=== PATIENT | male | born 1965 | race Caucasian/White ===

== ENCOUNTER 2020-07-09 05:50 | Emergency (ER) | payer OTHER, MEDICAID ==
--- NOTE | 2020-07-09 06:12 | EDM.PDOC ---
ED HPI GENERAL MEDICAL PROBLEM - General Chief Complaint: Back Pain or Injury Stated Complaint: Low thoracic back pain Time Seen by Provider: 07/09/20 06:05 Source of Information: Reports: Patient History Limitations: Reports: No Limitations - History of Present Illness INITIAL COMMENTS - FREE TEXT/NARRATIVE: Patient presents emergency department today with complaints of severe pain in the mid lateral aspect of his back starting about 1:00 this morning. The patient went to bed had a little discomfort in the mid lateral aspect of the right side of his thoracic back but he woke up with this severe spasms and shooting of pain about 1:00 this morning. The pain is really kind of the posterior axillary line in the mid thoracic region. He is able to get comfortable but he is having quite a bit of pain and spasms when he moves but he is able to get in a position of comfort. 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 He has been doing quite a bit of lifting bending and flexing yesterday when he was at work during the day he cannot isolate any specific situation where he felt the sudden development of pain. He felt a little sore but this really came out of the blue and woke him up from sleep. He has no paresthesias of his upper or lower extremities. No change in the functionality of his upper or lower extremities. No loss of bowel or bladder. No recent falls trauma or injury. No chest pain no shortness of breath or difficulty breathing. No abdominal pain nausea or vomiting. He tried some ibuprofen and Flexeril without much improvement. No Covid symptoms no Covid exposure. Back/right lower thoracic Pain Score (Numeric/FACES): 8 - Related Data Allergies Allergy/AdvReac Type Severity Reaction Status Date / Time amphetamine Allergy Other Verified 07/12/19 16:13 Penicillins Allergy Other Verified 07/12/19 16:13 Home Meds: Home Meds Acetaminophen [Tylenol Extra Strength] 500 - 1,000 mg pe PO Q4H PRN 07/12/19 [History] Celecoxib 200 mg PO DAILY 07/12/19 [History] Cyclobenzaprine [Flexeril] 10 mg pe PO TID PRN 07/12/19 [History] Naproxen Sodium 220 mg PO BID PRN 07/12/19 [History] tiZANidine HCl [Zanaflex] 2 mg PO QID PRN #12 capsule 07/09/20 [Rx] Past Medical History Musculoskeletal History: Reports: Other (See Below) Other Musculoskeletal History: ulnar neuropathy at elbow of right upper extremity, chronic knee pain, tear of left rotator cuff, impingement syndrome of both shoulders. Psychiatric History: Reports: ADD, Addiction, Depression Other Psychiatric History: tobacco addiction Endocrine/Metabolic History: Reports: Obesity/BMI 30+ ED ROS GENERAL - Review of Systems Review Of Systems: Comprehensive ROS is negative, except as noted in HPI. ED EXAM, UPPER BACK/NECK PAIN - Physical Exam Exam: See Below Text/Narrative:: When I enter the room the patient is sitting comfortably on the bed but when I ask him to move to examine him he appears to develop severe muscle spasms and grabs his right mid lateral thoracic posterior axillary line of the right back. Exam Limited By: No Limitations General Appearance: Alert, WD/WN, Moderate Distress Eye Exam: Bilateral Eye: EOMI Ears Exam: Normal External Exam Nose Exam: Normal Inspection, Normal Mucousa Throat/Mouth Exam: Normal Inspection, Normal Lips, Normal Voice Head Exam: Atraumatic, Normocephalic Neck Exam: Non-Tender, Full Range of Motion, Normal Alignment, Normal Inspection Cardiovascular/Respiratory: Regular Rate, Rhythm GI/Abdominal: Normal Bowel Sounds, Soft, Non-Tender (Male) Exam: Deferred Rectal (Males) Exam: Deferred Back Exam: Muscle Spasm (Right mid lateral thoracic region in the posterior axillary line on the right.). No: Paraspinal Tenderness, Vertebral Tenderness Extremities: Normal Inspection, Normal Range of Motion, Normal Capillary Refill Neurologic: sales clerk II-XII nml As Tested, No Motor/Sensory Deficits, Alert, Normal Mood/Affect, Oriented x 3 DTR: 2+: Patella (R), Patella (L), Achilles (R), Achilles (L) Psychiatric: Normal Affect, Normal Mood Skin Exam: Normal Color, Warm/Dry Course - Vital Signs Last Recorded V/S: Last Vital Signs Temp 98.1 F 07/09/20 05:50 Pulse 70 07/09/20 05:50 Resp 16 07/09/20 05:50 BP 177/104 H 07/09/20 05:50 Pulse Ox 97 07/09/20 05:50 - Orders/Labs/Meds Meds: Medications Discontinued Medications Generic Name Dose Route Start Last Admin Trade Name Dorota PRN Reason Stop Dose Admin Hydrocodone Bitart/Acetaminophen 1 tab 07/09/20 06:48 07/09/20 06:56 [place] 325-10 Mg PO 07/09/20 06:49 1 tab ONETIME ONE Administration Orphenadrine Citrate 60 mg 07/09/20 06:11 07/09/20 06:32 Norflex IM 07/09/20 06:12 60 mg NOW STA Administration - Re-Assessments/Exams Free Text/Narrative Re-Assessment/Exam: Patient initially was given 60 mg of Norflex IM. He had some improvement of his pain. This is clearly musculoskeletal pain. There is no rash lesions falls sores or injuries to this area. It is primarily mechanical does get worse with movement. He is feeling better he like to go home. We will give him hydrocodone to take at home to help with sleep tonight. We will also send a prescription for Zanaflex. If he is not improving we will have him follow-up with physical therapy or his PCP. He is comfortable with this plan his questions are answered. Departure - Departure Time of Disposition: 06:51 Disposition: Home, Self-Care 01 Clinical Impression: Muscle spasm of back - Discharge Information Prescriptions: tiZANidine HCl [Zanaflex] 2 mg PO QID PRN #12 capsule PRN Reason: Muscle Spasm Instructions: Muscle Cramps and Spasms, [id number], Back Injury Prevention, [id number], Pain Medicine Instructions, [id number] Referrals: PCP,Unobtain [Ordering Only Provider] - Forms: ED Department Discharge, ED Return to Work/School Form Additional Instructions: Make sure and drink plenty of fluids over the next few days. Tylenol and or Ibuprofen as needed for pain. Heat or ice to the affected area which every works best for you. If muscle spasms not improved with above. Zanaflex 2 tablet 4 times a day as needed for muscle spasms. Caution sedation. Rx sent to [facility]. If not improving with the above therapy consider a self referral to physical therapy. Return to the ED if new or worsening symptoms. Okay to return to work light duty for the next week. If continued problems see physical therapy for continue directions of activity at work. Follow up with PCP in the next 7 days if not improving sooner if worse.
[2020-07-09 06:18] VITALS: BP 177/104; PULSE 70
[2020-07-09] MEDS: Orphenadrine 60 MG/2 ML Inj IM STA (06:32)
[2020-07-09] MEDS: Acetaminophen/HYDROcodone 325-10 MG Tab PO ONE (06:56)
== END 2020-07-09 07:10 | disposition home or self-care (01) ==
LOC: VM.ED 05:50
DX: M62.830 Muscle spasm of back (principal); E66.9 Obesity, unspecified; Z68.30 Body mass index [BMI] 30.0-30.9, adult; Z88.8 Allergy status to other drugs, medicaments and biological substances; Z88.0 Allergy status to penicillin
CPT/HCPCS: 96372; 99283; A9270-GY; J2360

== ENCOUNTER 2021-05-17 17:16 | Emergency (ER) | payer OTHER, MEDICAID ==
[2021-05-17 17:31] VITALS: BP 161/91; PULSE 74
--- NOTE | 2021-05-17 17:32 | EDM.PDOC ---
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 Sustained a 5 cm laceration to the pad of the 4th finger on the volar side. immunizations to include tetanus are up to date. He is right handed - Related Data Allergies Allergy/AdvReac Type Severity Reaction Status Date / Time amphetamine Allergy Other Verified 05/17/21 17:33 Penicillins Allergy Other Verified 05/17/21 17:33 Home Meds: Home Meds Acetaminophen [Tylenol Extra Strength] 500 - 1,000 mg pe PO Q4H PRN 07/12/19 [History] Cyclobenzaprine [Flexeril] 10 mg pe PO TID PRN 07/12/19 [History] Naproxen Sodium 220 mg PO BID PRN 07/12/19 [History] lisinopriL [Lisinopril] 10 mg PO DAILY 05/17/21 [History] Past Medical History Cardiovascular History: Reports: Hypertension Musculoskeletal History: Reports: Other (See Below) Other Musculoskeletal History: ulnar neuropathy at elbow of right upper extremity, chronic knee pain, tear of left rotator cuff, impingement syndrome of both shoulders. Psychiatric History: Reports: ADD, Addiction, Depression Other Psychiatric History: tobacco addiction Endocrine/Metabolic History: Reports: Obesity/BMI 30+ ED ROS GENERAL - Review of Systems Review Of Systems: See Below Constitutional: Reports: No Symptoms HEENT: Reports: No Symptoms Respiratory: Reports: No Symptoms Cardiovascular: Reports: No Symptoms Endocrine: Reports: No Symptoms GI/Abdominal: Reports: No Symptoms : Reports: No Symptoms Musculoskeletal: Reports: No Symptoms Skin: Reports: Wound ED EXAM, GENERAL - Physical Exam Exam: See Below Exam Limited By: No Limitations General Appearance: Alert, WD/WN, No Apparent Distress Eye Exam: Bilateral Eye: Normal Inspection, PERRL Ears: Normal External Exam Nose: Normal Inspection, Normal Mucosa Throat/Mouth: Normal Inspection, Normal Voice Head: Atraumatic Neck: Normal Inspection Respiratory/Chest: No Respiratory Distress, Lungs Clear Cardiovascular: Normal Peripheral Pulses, Regular Rate, Rhythm Extremities: Other (3.5 cm laceration to the 4th finger volar aspect distal fingers on the left hand. sensation intact distally. no bony or tendon involvement) ED GENERAL MEDICAL PROCEDURES - Laceration/Wound Repair Digit - 4th (Ring) Lac/wound length in cm: 3.5 Appearance: Superficial, Subcutaneous Distal NVT: Neuro & Vascular Intact, No Tendon Injury Anesthetic Type: Digital Local Anesthesia - Lidocaine (Xylocaine): 1% Plain Local Anesthetic Volume: 3cc Skin Prep: Saline Exploration/Debridement/Repair: Wound Explored Closed with: Sutures Suture Size: 4-0 # of Sutures: 7 Suture Type: Nylon, Running (locked) Sterile Dressing Applied: Nurse Tetanus Status Addressed: Yes Complications: No Course - Vital Signs Last Recorded V/S: Last Vital Signs Temp 37.3 C 05/17/21 17:20 Pulse 74 05/17/21 17:20 Resp 18 05/17/21 17:20 BP 161/91 H 05/17/21 17:20 Pulse Ox 98 05/17/21 17:20 - Orders/Labs/Meds Meds: Medications Discontinued Medications Generic Name Dose Route Start Last Admin Trade Name Dorota PRN Reason Stop Dose Admin Lidocaine HCl 5 ml 05/17/21 17:21 Lidocaine 1% 5 Ml Sdv INJECT 05/17/21 17:22 ONETIME ONE - Re-Assessments/Exams Free Text/Narrative Re-Assessment/Exam: 05/17/21 17:44 tetanus is up to date. sutures out in 10-14 days. watch for signs of infection Departure - Departure Time of Disposition: 17:59 Disposition: Home, Self-Care 01 Condition: Good Clinical Impression: Finger laceration - Discharge Information Instructions: Laceration Care, Adult, [id number] Referrals: PCP,None [Primary Care Provider] - Additional Instructions: keep the finger dressed with a bandage. You can wash your hands, but do not immerse them in water as this will spread infection. sutures need to be removed in 10-14 days. return to the ED for signs of infection with redness and swelling. Sepsis Event Note (ED) - Focused Exam Vital Signs: Vital Signs Temp Pulse Resp BP Pulse Ox 05/17/21 17:20 37.3 C 74 18 161/91 H 98
== END 2021-05-17 18:12 | disposition home or self-care (01) ==
LOC: VM.ED 17:16
DX: S61.215A Laceration without foreign body of left ring finger without damage to nail, initial encounter (principal); I10 Essential (primary) hypertension; F17.200 Nicotine dependence, unspecified, uncomplicated; E66.9 Obesity, unspecified; Z88.6 Allergy status to analgesic agent; Z88.0 Allergy status to penicillin; Z79.899 Other long term (current) drug therapy; W26.8XXA Contact with other sharp object(s), not elsewhere classified, initial encounter; Y92.89 Other specified places as the place of occurrence of the external cause; Y99.0 Civilian activity done for income or pay
CPT/HCPCS: 12002; 99282-25

== ENCOUNTER 2024-02-20 15:36 | Emergency (ER) | payer MEDICAID ==
[2024-02-20] MEDS: Aspirin 81 MG Tab.Chew PO ONE (15:43)
[2024-02-20] MEDS ORDERED: Sodium Chloride 0.9% 10 ML Syringe FLUSH PRN (15:44)
[2024-02-20] MEDS: Alum Hydrox/Mag Hydrox/Simeth 30 ML, Lidocaine 2% 15 ML PO ONE (15:50)
[2024-02-20] MEDS: Nitroglycerin 0.4 MG Tab.SL SL ONE (15:57)
[2024-02-20 16:01] LABS: BASOPHILS ABSOLUTE AUTO 0.1 x10^3/uL (0.0-0.2); BASOPHILS PERCENT AUTO 0.6 % (0.2-1.2); EOSINOPHILS ABSOLUTE AUTO 0.2 x10^3/uL (0.0-0.5); EOSINOPHILS PERCENT AUTO 1.9 % (0.0-4.0); HEMATOCRIT 46.5 % (40.0-52.0); HEMOGLOBIN 16.2 g/dL (14.0-18.0); IMMATURE GRAN ABSOLUTE AUTO 0.04 x10^3/uL (0.00-0.07); LYMPHOCYTES ABSOLUTE AUTO 1.7 x10^3/uL (1.0-4.8); LYMPHOCYTES PERCENT AUTO 15.7 % (25.0-50.0); MEAN CORPUSCULAR HEMOGLOBIN 30.1 pg (26.0-32.0); MEAN CORPUSCULAR HGB CONC 34.8 g/dL (32.0-36.0); MEAN CORPUSCULAR VOLUME 86.4 fL (78.0-93.0); MONOCYTES ABSOLUTE AUTO 0.8 x10^3/uL (0.0-0.8); MONOCYTES PERCENT AUTO 7.8 % (2.0-11.0); NEUTROPHILS ABSOLUTE AUTO 7.9 x10^3/uL (1.8-7.7); NEUTROPHILS PERCENT AUTO 73.6 % (50.0-80.0); PLATELET COUNT,PLT 192 x10^3/uL (130-400); RED BLOOD CELL COUNT 5.38 x10^6/uL (4.5-6.0); WHITE BLOOD CELL COUNT,WBC 10.7 x10^3/uL (4.0-10.0)
[2024-02-20 16:12] LABS: INR 1.1 (0.9-1.1); PROTHROMBIN TIME 10.7 SEC (8.9-11.5)
[2024-02-20 16:25] LABS: A/G RATIO 0.95; ALANINE AMINOTRANSFERASE,ALT 26 U/L (16-63); ALBUMIN 3.7 g/dL (3.4-5.0); ALKALINE PHOSPHATASE 104 U/L (46-116); ASPARTATE AMNIOTRANSFERASE,AST 127 U/L (15-37); BILIRUBIN TOTAL 0.5 mg/dL (0.2-1.0); BLOOD UREA NITROGEN,BUN 9 mg/dL (7-18); CALCIUM 8.7 mg/dL (8.5-10.1); CARBON DIOXIDE,CO2 30 mmol/L (21-32); CHLORIDE,CL 101 mmol/L (98-107); GLUCOSE RANDOM 119 mg/dL (70-99); MAGNESIUM 2.1 mg/dL (1.8-2.4); POTASSIUM,K 3.3 mmol/L (3.5-5.1); PROTEIN TOTAL,TP 7.6 g/dL (6.4-8.2); SODIUM,NA 140 mmol/L (136-145)
[2024-02-20 16:27] LABS: ANION GAP 12.3 mmol/L (5-15); ESTIMATED GFR 88 mL/min (>=60)
[2024-02-20 16:32] LABS: PRO B-TYPE NATRIUR PEPT,BNPPRO 404 pg/mL (<=125)
[2024-02-20] MEDS: Heparin Sodium 5,000 Units/ML Vial IVPUSH ONE ×2 (16:41→16:49)
[2024-02-20] MEDS: Heparin Sodium/0.45% NaCl 25,000 UNITS/500 ML BAG IV SCH (16:47)
[2024-02-20] MEDS: Metoprolol Tartrate 25 MG Tab PO STA (16:53)
[2024-02-20] MEDS: Nitroglycerin/D5W 25 MG/250 ML BOTTLE IV SCH (16:58)
== END 2024-02-20 18:30 | disposition short-term general hospital (02) ==
LOC: VM.ED 15:36
DX: I21.4 Non-ST elevation (NSTEMI) myocardial infarction (principal); I10 Essential (primary) hypertension; E66.9 Obesity, unspecified; Z79.899 Other long term (current) drug therapy; Z88.0 Allergy status to penicillin; Z88.8 Allergy status to other drugs, medicaments and biological substances
CPT/HCPCS: 71045; 80053; 83735; 83880; 84484; 85025; 85610; 93005; 93010; 96365; 96366; 96368; 99284; 99285-25; A9270-GY; J1644; J2305

== ENCOUNTER 2024-07-18 20:28 | Emergency (ER) | payer MEDICAID ==
[2024-07-18] MEDS ORDERED: Sodium Chloride 0.9% 10 ML Syringe FLUSH PRN (20:35)
[2024-07-18] MEDS: Albuterol/Ipratropium 3.0-0.5 MG/3 ML Neb Soln NEB ONE (20:46)
[2024-07-18 20:57] LABS: BASOPHILS PERCENT AUTO 0.4 % (0.2-1.2); EOSINOPHILS ABSOLUTE AUTO 0.2 x10^3/uL (0.0-0.5); EOSINOPHILS PERCENT AUTO 2.2 % (0.0-4.0); HEMATOCRIT 41.2 % (40.0-52.0); HEMOGLOBIN 14.4 g/dL (14.0-18.0); IMMATURE GRAN ABSOLUTE AUTO 0.05 x10^3/uL (0.00-0.07); LYMPHOCYTES ABSOLUTE AUTO 2.4 x10^3/uL (1.0-4.8); LYMPHOCYTES PERCENT AUTO 23.3 % (25.0-50.0); MEAN CORPUSCULAR HEMOGLOBIN 30.8 pg (26.0-32.0); MEAN CORPUSCULAR VOLUME 88.2 fL (78.0-93.0); MONOCYTES PERCENT AUTO 9.2 % (2.0-11.0); NEUTROPHILS ABSOLUTE AUTO 6.7 x10^3/uL (1.8-7.7); NEUTROPHILS PERCENT AUTO 64.4 % (50.0-80.0); PLATELET COUNT,PLT 255 x10^3/uL (130-400); RED BLOOD CELL COUNT 4.67 x10^6/uL (4.5-6.0); WHITE BLOOD CELL COUNT,WBC 10.3 x10^3/uL (4.0-10.0)
[2024-07-18 21:13] LABS: A/G RATIO 0.95; ALANINE AMINOTRANSFERASE,ALT 28 U/L (16-63); ALBUMIN 3.5 g/dL (3.4-5.0); ALKALINE PHOSPHATASE 91 U/L (46-116); ASPARTATE AMNIOTRANSFERASE,AST 19 U/L (15-37); BILIRUBIN TOTAL 0.5 mg/dL (0.2-1.0); BLOOD UREA NITROGEN,BUN 15 mg/dL (7-18); CALCIUM 8.9 mg/dL (8.5-10.1); CARBON DIOXIDE,CO2 31 mmol/L (21-32); CHLORIDE,CL 99 mmol/L (98-107); CREATININE 1.3 mg/dL (0.70-1.30); GLUCOSE RANDOM 159 mg/dL (70-99); PROTEIN TOTAL,TP 7.2 g/dL (6.4-8.2); SODIUM,NA 135 mmol/L (136-145)
[2024-07-18 21:16] LABS: ESTIMATED GFR 64 mL/min (>=60)
== END 2024-07-18 21:42 | disposition home or self-care (01) ==
LOC: VM.ED 20:28
DX: E87.6 Hypokalemia (principal); R06.2 Wheezing; R06.02 Shortness of breath; I10 Essential (primary) hypertension; I25.2 Old myocardial infarction; J44.9 Chronic obstructive pulmonary disease, unspecified; E66.9 Obesity, unspecified; Z88.8 Allergy status to other drugs, medicaments and biological substances; Z79.899 Other long term (current) drug therapy; Z79.82 Long term (current) use of aspirin; Z68.39 Body mass index [BMI] 39.0-39.9, adult
CPT/HCPCS: 71046; 80053; 84484; 85025; 87428-QW; 93005; 93010; 94640; 99284; 99285; A9270-GY

== ENCOUNTER 2024-08-13 14:35 | Emergency (ER) | payer MEDICAID ==
[2024-08-13] MEDS: Albuterol/Ipratropium 3.0-0.5 MG/3 ML Neb Soln NEB ONE (14:45)
[2024-08-13 14:52] LABS: BASOPHILS ABSOLUTE AUTO 0.1 x10^3/uL (0.0-0.2); BASOPHILS PERCENT AUTO 0.5 % (0.2-1.2); EOSINOPHILS ABSOLUTE AUTO 0.2 x10^3/uL (0.0-0.5); EOSINOPHILS PERCENT AUTO 1.8 % (0.0-4.0); HEMATOCRIT 44.1 % (40.0-52.0); IMMATURE GRAN ABSOLUTE AUTO 0.06 x10^3/uL (0.00-0.07); LYMPHOCYTES ABSOLUTE AUTO 2.2 x10^3/uL (1.0-4.8); LYMPHOCYTES PERCENT AUTO 20.8 % (25.0-50.0); MEAN CORPUSCULAR HEMOGLOBIN 30.4 pg (26.0-32.0); MEAN CORPUSCULAR VOLUME 89.5 fL (78.0-93.0); MONOCYTES ABSOLUTE AUTO 0.9 x10^3/uL (0.0-0.8); NEUTROPHILS ABSOLUTE AUTO 7.4 x10^3/uL (1.8-7.7); NEUTROPHILS PERCENT AUTO 68.3 % (50.0-80.0); PLATELET COUNT,PLT 245 x10^3/uL (130-400); RED BLOOD CELL COUNT 4.93 x10^6/uL (4.5-6.0); WHITE BLOOD CELL COUNT,WBC 10.7 x10^3/uL (4.0-10.0)
[2024-08-13 15:21] LABS: A/G RATIO 0.92; ALBUMIN 3.5 g/dL (3.4-5.0); BILIRUBIN TOTAL 0.9 mg/dL (0.2-1.0); CALCIUM 8.5 mg/dL (8.5-10.1); CREATININE 1.2 mg/dL (0.70-1.30); EST CRCL DRUG DOSING (CG) 78.97 mL/min; POTASSIUM,K 3.1 mmol/L (3.5-5.1); PROTEIN TOTAL,TP 7.3 g/dL (6.4-8.2)
[2024-08-13 15:22] LABS: ANION GAP 12.1 mmol/L (5-15)
[2024-08-13] MEDS: Iopamidol 755 Mg/ML 100 ML Bottle IVPUSH ONE (15:28)
== END 2024-08-13 16:39 | disposition home or self-care (01) ==
LOC: VM.ED 14:35
DX: R06.02 Shortness of breath (principal); R06.01 Orthopnea; I10 Essential (primary) hypertension; I25.2 Old myocardial infarction; J44.9 Chronic obstructive pulmonary disease, unspecified; Z88.0 Allergy status to penicillin; Z88.8 Allergy status to other drugs, medicaments and biological substances; Z79.82 Long term (current) use of aspirin; Z79.899 Other long term (current) drug therapy; Z79.51 Long term (current) use of inhaled steroids
CPT/HCPCS: 71275; 80053; 83605; 83735; 83880; 84484; 85025; 93005; 93010; 94640; 99284; 99285; A9270-GY; Q9967

== ENCOUNTER 2024-08-15 22:24 | Observation (INO) | payer OTHER, MEDICAID ==
[2024-08-15] MEDS ORDERED: Sodium Chloride 0.9% 10 ML Syringe FLUSH PRN (22:31)
[2024-08-15] MEDS: methylPREDNISolone Sodium Succinate 125 MG/2 ML SDV IVPUSH ONE (22:40)
[2024-08-15 22:50] LABS: BASOPHILS ABSOLUTE AUTO 0.1 x10^3/uL (0.0-0.2); BASOPHILS PERCENT AUTO 0.8 % (0.2-1.2); EOSINOPHILS ABSOLUTE AUTO 0.2 x10^3/uL (0.0-0.5); EOSINOPHILS PERCENT AUTO 2.6 % (0.0-4.0); HEMATOCRIT 37.2 % (40.0-52.0); HEMOGLOBIN 12.7 g/dL (14.0-18.0); IMMATURE GRAN ABSOLUTE AUTO 0.07 x10^3/uL (0.00-0.07); LYMPHOCYTES ABSOLUTE AUTO 3.4 x10^3/uL (1.0-4.8); LYMPHOCYTES PERCENT AUTO 36.4 % (25.0-50.0); MEAN CORPUSCULAR HEMOGLOBIN 31.5 pg (26.0-32.0); MEAN CORPUSCULAR HGB CONC 34.1 g/dL (32.0-36.0); MEAN CORPUSCULAR VOLUME 92.3 fL (78.0-93.0); MONOCYTES ABSOLUTE AUTO 0.9 x10^3/uL (0.0-0.8); MONOCYTES PERCENT AUTO 9.2 % (2.0-11.0); NEUTROPHILS ABSOLUTE AUTO 4.7 x10^3/uL (1.8-7.7); NEUTROPHILS PERCENT AUTO 50.2 % (50.0-80.0); PLATELET COUNT,PLT 215 x10^3/uL (130-400); RED BLOOD CELL COUNT 4.03 x10^6/uL (4.5-6.0); WHITE BLOOD CELL COUNT,WBC 9.3 x10^3/uL (4.0-10.0)
[2024-08-15 23:08] LABS: PROTHROMBIN TIME 10.6 SEC (9.6-12.0); PTT,PARTIAL THROMBOPLSTIN TIME 23.6 SEC (23.5-33.2)
[2024-08-15 23:17] LABS: A/G RATIO 1.09; ALANINE AMINOTRANSFERASE,ALT 31 U/L (16-63); ALBUMIN 3.5 g/dL (3.4-5.0); ALKALINE PHOSPHATASE 76 U/L (46-116); ASPARTATE AMNIOTRANSFERASE,AST 22 U/L (15-37); BILIRUBIN TOTAL 0.4 mg/dL (0.2-1.0); BLOOD UREA NITROGEN,BUN 23 mg/dL (7-18); C-REACTIVE PROTEIN 1.74 mg/dL (<=0.50); CALCIUM 8.2 mg/dL (8.5-10.1); CARBON DIOXIDE,CO2 28 mmol/L (21-32); CHLORIDE,CL 101 mmol/L (98-107); CREATININE 1.5 mg/dL (0.70-1.30); GLUCOSE RANDOM 143 mg/dL (70-99); MAGNESIUM 1.9 mg/dL (1.8-2.4); PRO B-TYPE NATRIUR PEPT,BNPPRO 134 pg/mL (<=125); PROTEIN TOTAL,TP 6.7 g/dL (6.4-8.2); SODIUM,NA 140 mmol/L (136-145)
[2024-08-15 23:18] LABS: ANION GAP 13.8 mmol/L (5-15); ESTIMATED GFR 54 mL/min (>=60)
[2024-08-15 23:19] LABS: POTASSIUM,K 2.8 mmol/L (3.5-5.1)
[2024-08-15 23:20] LABS: LACTIC ACID 2.1 mmol/L (0.4-2.0)
[2024-08-15 23:39] LABS: HCO3 VENOUS,POC 24 mmol/L (22-29); O2 SATURATION VENOUS,POC 98 %; PCO2 VENOUS,POC 36 mmHg (41-51); PH VENOUS,POC 7.43 pH (7.32-7.43); PO2 VENOUS,POC 94 mmHg
[2024-08-16] MEDS: cefTRIAXone 1 GM Vial IVPUSH ONE (00:15)
[2024-08-16] MEDS: Albuterol/Ipratropium 3.0-0.5 MG/3 ML Neb Soln NEB ONE (00:17)
[2024-08-16] MEDS: Lactated Ringers 1,000 ML IV ONE (00:19)
[2024-08-16] MEDS: Acetaminophen 500 MG Tab PO ONE (00:19)
[2024-08-16] MEDS ORDERED: Albuterol 0.083% 2.5 MG/3 ML Neb Soln NEB PRN (01:50)
[2024-08-16] MEDS ORDERED: Nitroglycerin 0.4 MG Tab.SL SL PRN (01:54)
[2024-08-16] MEDS ORDERED: Naloxone HCl 4 MG Spray 2 Pack NAS PRN (01:54)
[2024-08-16] MEDS: Potassium Chloride 10 MEQ in Premix Bag 1 BAG IV SCH (02:55)
[2024-08-16] MEDS: Cyclobenzaprine 10 MG Tab PO SCH (02:57)
[2024-08-16] MEDS: Gabapentin 100 MG Cap PO SCH (02:57)
[2024-08-16] MEDS: Potassium Chloride 20 MEQ Tab.ER PO ONE (02:58)
[2024-08-16] MEDS: Ticagrelor 90 MG Tab PO SCH (02:59)
[2024-08-16] MEDS: Acetaminophen/HYDROcodone 325-10 MG Tab PO PRN (02:59)
[2024-08-16] MEDS: Nicotine 14 MG/24 Hr Patch TRDERM ONE ×2 (04:00→10:28)
[2024-08-16 07:03] LABS: HEMATOCRIT 37.4 % (40.0-52.0); HEMOGLOBIN 12.9 g/dL (14.0-18.0); MEAN CORPUSCULAR HEMOGLOBIN 31.5 pg (26.0-32.0); MEAN CORPUSCULAR HGB CONC 34.5 g/dL (32.0-36.0); MEAN CORPUSCULAR VOLUME 91.4 fL (78.0-93.0); RED BLOOD CELL COUNT 4.09 x10^6/uL (4.5-6.0)
[2024-08-16 07:22] LABS: ANION GAP 11.6 mmol/L (5-15); CALCIUM 8.5 mg/dL (8.5-10.1); CREATININE 1.5 mg/dL (0.70-1.30); EST CRCL DRUG DOSING (CG) 63.17 mL/min; POTASSIUM,K 3.6 mmol/L (3.5-5.1)
[2024-08-16] MEDS: Tiotropium BR/Olodaterol HCL 4 GM Inhalation Spray 2.5mcg/1 dose; 10 doses INH SCH (07:40)
[2024-08-16] MEDS: Formoterol/Mometasone 100-5 MCG 8.8 GM Inhaler INH SCH (07:41)
[2024-08-16] MEDS ORDERED: Tiotropium BR/Olodaterol HCL 4 GM Inhalation Spray 2.5mcg/1 dose; 10 doses INH SCH (09:00)
[2024-08-16] MEDS: Aspirin 81 MG Tab.Chew PO SCH (09:08)
[2024-08-16] MEDS: Isosorbide Mononitrate 60 MG Tab.ER PO SCH (09:08)
[2024-08-16] MEDS: Metoprolol Succinate 50 MG Tab.ER PO SCH (09:08)
[2024-08-16] MEDS: predniSONE 20 MG Tab PO SCH (09:09)
[2024-08-16] MEDS: amLODIPine 10 MG Tab PO SCH (09:09)
[2024-08-16] MEDS: guaiFENesin 600 MG Tab.ER PO SCH (09:09)
[2024-08-16] MEDS: atorvaSTATin 40 MG Tab PO SCH (09:09)
[2024-08-16] MEDS: Losartan 50 MG Tab PO SCH (09:09)
[2024-08-16] MEDS: Escitalopram 10 MG Tab PO SCH (09:10)
[2024-08-16] MEDS: Enoxaparin 40 MG/0.4 ML Syringe SUBCUT SCH (09:11)
[2024-08-17] MEDS ORDERED: cefTRIAXone 1 GM Vial IVPUSH SCH (00:01)
[2024-08-17] MEDS ORDERED: buPROPion 100 MG Tab.SR PO SCH (09:00)
== END 2024-08-16 15:00 | disposition home or self-care (01) ==
LOC: VM.ED 22:24 → VM.MS 08-16 00:08 → INTOOBSV 08-16 00:08 → VM.MS 08-16 00:47
PROVIDERS: ADMIT Internal Medicine; ATTEND Internal Medicine
DX: R55 Syncope and collapse (principal); J44.1 Chronic obstructive pulmonary disease with (acute) exacerbation; I10 Essential (primary) hypertension; E87.6 Hypokalemia; F17.210 Nicotine dependence, cigarettes, uncomplicated; F32.A Depression, unspecified; Z79.899 Other long term (current) drug therapy; V49.40XA Driver injured in collision with unspecified motor vehicles in traffic accident, initial encounter
CPT/HCPCS: 36415; 71045; 80048; 80053; 82803; 83605; 83735; 83880; 84484; 85025; 85027; 85610; 85730; 86140; 94640; 94760; 96361; 96365; 96372; 96375; 99285; A9270; G0378; J0696; J1650; J2919; J3480; J7120; J7512; J7620; 93010; 96374; 99284

== ENCOUNTER 2024-08-29 23:20 | Emergency (ER) | payer MEDICAID ==
[2024-08-29] MEDS ORDERED: Sodium Chloride 0.9% 10 ML Syringe FLUSH PRN (23:28)
[2024-08-29] MEDS: Albuterol/Ipratropium 3.0-0.5 MG/3 ML Neb Soln NEB ONE (23:32)
[2024-08-30] MEDS: methylPREDNISolone Sodium Succinate 125 MG/2 ML SDV IVPUSH ONE (00:05)
[2024-08-30] MEDS: cefTRIAXone 1 GM Vial IVPUSH ONE (00:07)
[2024-08-30] MEDS: Albuterol 0.083% 2.5 MG/3 ML Neb Soln NEB ONE (00:16)
[2024-08-30] MEDS: Doxycycline Monohydrate 100 MG Cap PO ONE (00:21)
== END 2024-08-30 00:40 | disposition home or self-care (01) ==
LOC: VM.ED 23:20
DX: J44.1 Chronic obstructive pulmonary disease with (acute) exacerbation (principal); E66.9 Obesity, unspecified; Z68.37 Body mass index [BMI] 37.0-37.9, adult; Z79.899 Other long term (current) drug therapy; Z88.8 Allergy status to other drugs, medicaments and biological substances; Z88.0 Allergy status to penicillin
CPT/HCPCS: 71045; 94640; 96374; 96375; 99284; 99285-25; A9270-GY; J0696; J2919

== ENCOUNTER 2024-09-01 20:38 | Emergency (ER) | payer MEDICAID ==
[2024-09-01] MEDS: Albuterol/Ipratropium 3.0-0.5 MG/3 ML Neb Soln NEB ONE (21:31)
== END 2024-09-01 21:29 | disposition home or self-care (01) ==
LOC: VM.ED 20:38
DX: J44.1 Chronic obstructive pulmonary disease with (acute) exacerbation (principal); I25.2 Old myocardial infarction; I10 Essential (primary) hypertension; Z95.5 Presence of coronary angioplasty implant and graft; Z88.0 Allergy status to penicillin; Z88.8 Allergy status to other drugs, medicaments and biological substances; Z79.51 Long term (current) use of inhaled steroids; Z79.82 Long term (current) use of aspirin; Z79.899 Other long term (current) drug therapy
CPT/HCPCS: 93005; 93010; 94640; 99284; J7620; A9270-GY

== ENCOUNTER 2024-11-07 09:41 | Day surgery (SDC) | payer MEDICAID ==
[~2024-11-07 09:41] MED LIST: Lactated Ringers 1,000 ML IV SCH
[2024-11-07] MEDS ORDERED: fentaNYL 100 MCG/2 ML SDV ONE (10:07)
[2024-11-07] MEDS ORDERED: Propofol 200 MG/20 ML SDV ONE (10:07)
[2024-11-07] MEDS ORDERED: Midazolam 1 MG/ML 2 ML SDV ONE (10:16)
[2024-11-07] MEDS: Lactated Ringers 1,000 ML IV SCH (10:20)
[2024-11-07] MEDS ORDERED: ePHEDrine 50 MG/ML SDV ONE ×2 (11:32→11:48)
== END 2024-11-07 13:37 | disposition home or self-care (01) ==
LOC: VM.SDS 09:41
PROVIDERS: ATTEND Family Medicine
DX: D12.2 Benign neoplasm of ascending colon (principal); D12.4 Benign neoplasm of descending colon; K62.5 Hemorrhage of anus and rectum; K64.9 Unspecified hemorrhoids; K63.89 Other specified diseases of intestine; I10 Essential (primary) hypertension; E66.9 Obesity, unspecified; F17.210 Nicotine dependence, cigarettes, uncomplicated; Z88.0 Allergy status to penicillin; Z79.899 Other long term (current) drug therapy
CPT/HCPCS: 00811; J2250; J2704; J3010; J3490; J7120